=== PATIENT | male | born 1960 | race Caucasian/White ===

== ENCOUNTER → 2020-04-08 10:21 | Outpatient (BNVA) | payer MEDICAID, SELFPAY | PROVIDERS: Family Provider Family Medicine; PCP Family Medicine; Visit Provider Family Medicine | DX: E11.42 Type 2 diabetes mellitus with diabetic polyneuropathy (principal); E78.00 Pure hypercholesterolemia, unspecified; G89.4 Chronic pain syndrome | CPT/HCPCS: 80053; 80061; 83036; 85025 ==

== ENCOUNTER → 2020-12-03 10:03 | Outpatient (BNVA) | payer MEDICAID, SELFPAY | PROVIDERS: Family Provider Family Medicine; PCP Family Medicine; Visit Provider Family Medicine | DX: M17.11 Unilateral primary osteoarthritis, right knee (principal); E11.42 Type 2 diabetes mellitus with diabetic polyneuropathy; E78.00 Pure hypercholesterolemia, unspecified; I10 Essential (primary) hypertension; D48.0 Neoplasm of uncertain behavior of bone and articular cartilage | CPT/HCPCS: 73562; 80053; 80061; 83036; 85025 ==

== ENCOUNTER 2021-03-21 22:44 | Inpatient (IN) | payer MEDICAID, SELFPAY ==
[2021-03-21 22:46] VITALS: BP 208/101; PULSE 84; RESP 22; TEMP 36.6; O2SAT 98; BMI 48.8
[2021-03-21 23:24] VITALS: BP 180/117; PULSE 85; RESP 20; O2SAT 97
[2021-03-22] VITALS (17 sets, daily range): BP systolic 120–216; BP diastolic 69–116; PULSE 5–84; RESP 16–20; TEMP 36.1–37; O2SAT 94–100; BMI 40.9
[2021-03-22] MEDS: sodium chloride 0.9% 1,000 ML 999 ML IV (00:21)
[2021-03-22] MEDS: morphine 4 mg/mL SDV 1 mL IVP ×4 (00:22→18:29)
[2021-03-22] MEDS: enalaprilat 1.25 mg/mL Inj IVP (00:22)
[2021-03-22] MEDS: ondansetron 2 mg/ML SDV 2 mL 4 MG IVP ×2 (00:22→05:47)
--- NOTE | 2021-03-22 00:27 | P.CONIM_ITS ---
Providers/Reason For Consult Consulting Physician/Specialty*: Bryan Blankenship, DO- General Surgery Reason for Consult*: Small bowel obstruction Primary Care Provider: Dagoberto Harris MD History of Present Illness History of Present Illness Jer Awad is a 61 year old male with past medical history of obesity, hypertension, and diabetes mellitus. He presented this evening to an outside facility with complaints of right groin pain that was increasing in intensity over the last 5 days. Patient initially noticed this bulge a while back however he notes that it would go in and out depending on whether he was standing or lying down. At that point it was not associated with much pain and he denies any other symptoms related to it. Approximately 5 days ago he lifted something heavy the bulge was again noted and this time he was unable to reduce it or have it go away on its own. Pain was relatively steady until this evening when he noted increasing pain and now nausea. Patient notes a normal bowel movement today and did eat a large meal around 5:00 but now is having significant nausea and episodes of eructation. He denies vomiting, fever, or chills. The pain is noticed as sharp in nature with radiation down to the scrotum and into the abdomen. The pain is currently constant and only relieved with pain medications. Review of Systems General: Reports: 10 or more systems reviewed and unremarkable except in HPI a nd below Meds/Allergies Home Medications and Allergies Home Medications Medication Instructions Recorded Confirmed Last Taken Type pregabalin 100 mg capsule 100 mg PO BID #60 cap 11/13/19 12/03/20 Unknown Rx potassium chloride 20 mEq 20 meq PO DAILY #90 tab 10/01/20 12/03/20 Unknown Rx tablet,extended release atorvastatin 10 mg tablet 10 mg PO DAILY #90 tab 12/04/20 Unknown Rx hydrochlorothiazide 25 mg tablet 25 mg PO DAILY #90 tab 12/10/20 Unknown Rx cyclobenzaprine 10 mg tablet See Rx Instructions .ROUTE 03/05/21 Unknown Rx .COMPLEX #60 tab ibuprofen 800 mg tablet 800 mg PO TID PRN #90 tab 03/05/21 Unknown Rx lisinopril 20 mg tablet 20 mg PO BID #180 tab 03/05/21 Unknown Rx metformin 500 mg tablet 500 mg PO DAILY 90 Days #90 tab 03/05/21 Unknown Rx permethrin 1 % topical liquid 60 ml TOPICAL Q7D #118 ml 03/05/21 Unknown Rx hydrocodone 10 mg-acetaminophen 1 tab PO Q6H PRN 30 Days #98 tab 03/08/21 Unknown Rx 325 mg tablet Allergies Allergy/AdvReac Type Severity Reaction Status Date / Time No Known Allergies Allergy Verified 12/03/20 08:39 Current Medications Current Medications Generic Name Dose Route Start Last Admin Trade Name Freq PRN Reason Stop Dose Admin Sodium Chloride 1,000 mls @ 999 mls/hr 03/21/21 23:52 03/22/21 00:21 Sodium Chloride 0.9% IV 03/22/21 00:52 999 mls/hr .Q1H1M ONE Administration PFSH Acute PFSH: Medical History (Updated 03/22/21 @ 00:38 by Bryan Blankenship DO) Chronic pain Head lice Hypercholesteremia Hypertension Osteoarthritis of right knee Type 2 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 Social History Smoking and tobacco status: never smoked Vitals/I&O/Wt Last Vital Signs Temp 97.9 F 03/21/21 22:46 Pulse 85 03/21/21 23:24 Resp 20 H 03/21/21 23:24 BP 180/117 03/21/21 23:24 Pulse Ox 97 03/21/21 23:24 Weight last 48 hrs Weight 350 lb Physical Exam Const: COMMON NORMALS: patient oriented x3 and alert GENERAL APPEARANCE: in distress (Mild, obviously in in discomfort) NUTRITIONAL APPEARANCE: obese HENMT: COMMON NORMALS: normocephalic and atraumatic HEAD & SCALP: normocephalic and atraumatic Eye: COMMON NORMALS: conjunctivae normal CONJUNCTIVA: Yes conjunctivae normal Neck/C-Spine: COMMON NORMALS: full ROM Chest: COMMONS NORMALS: normal inspection of the chest Resp: COMMON NORMALS: normal respiratory effort Cardio: COMMON NORMALS: regular rate and regular rhythm RATE: regular rate RHYTHM: regular rhythm GI: INSPECTION: Yes abdominal distension AUSCULTATION: Yes Hyperactive bowel sounds present PALPATION: Yes Tenderness to palpation present (GI) and Yes Guarding due to palpation present (GI) RECTAL EXAM: Yes deferred : COMMON NORMALS: Yes no CVA tenderness BLADDER/KIDNEY EXAM: Yes no CVA tenderness MALE GROIN/PERINEUM EXAM: Yes edema and Yes tenderness (Right groin and scrotum) SCROTUM: Yes inguinal hernia Inguinal hernia laterality: right (Reducible, exquisitely tender), Yes edematous and Yes scrotal swelling Back/Pelvis: COMMON NORMALS: no CVA tenderness Extremity: COMMON NORMALS: normal to inspection Neuro: COMMON NORMALS: patient oriented x3 SENSORIUM/ORIENTATION: Yes alert Psych: COMMON NORMALS: mental status grossly normal, Normal thought process present and cooperative THOUGHT PROCESS: Normal thought process present Data Labs: Other Labs: WBC: 11; creatinine: Greater than 2 Imaging^: CT Abd/Pel: My impression: Small bowel obstruction with incarcerated loop within the right inguinal hernia with surrounding fluid A&P Assessment and plan (1) Inguinal hernia of right side with obstruction: 61-year-old male with incarcerated right inguinal hernia with associated small bowel obstruction. I am concerned that he is at high risk for strangulation given the relatively small neck of the hernia. Plan is for open right inguinal hernia repair with possible small bowel resection with possible exploratory laparotomy. Risks, benefits, and alternatives were discussed with the patient and he verbalized understanding. The plan is for emergent surgery this evening. Patient will be admitted to the hospitalist for control of his hypertension and diabetes. Status: Acute Coding Level of Care Code Acute Lab Support Technician for [facility] Diagnoses Inguinal hernia of right side with obstruction K40.30
[2021-03-22] MEDS: HYDROmorphone 1 mg/mL INJ 1 mL IVP (00:48)
--- NOTE | 2021-03-22 01:08 | ANES.PREANE2 ---
Pre-Anesthetic Assessment Pre-Anesthetic Assessment: Height/Weight: Height 1.8 m Weight 158.757 kg Temp Pulse Resp BP Pulse Ox 97.9 F 85 20 H 180/117 97 03/21/21 22:46 03/21/21 23:24 03/21/21 23:24 03/21/21 23:24 03/21/21 23:24 Preop Diagnosis: Inguinal Hernia Proposed Procedure: Ex-lap Familial anesthetic complications: None Was Beta Jac taken within 24 hours: N/A Was Clonidine taken within 24 hours: N/A Last intake: NPO at 8 hrs (last ate 5 pm yesterday) Social: Social History: No alcohol and No tobacco Exam: Pre-Anes Outpt Exam: alert, oriented x 3, clear to auscultation bilaterally and regular rate & rhythm Airway: Cervical ROM: WNL MP: 4 Dentition: Full Additional comments: large tongue, large neck circumference, full chris CV/HEM: CV/HEM: HTN Metabolic: Metabolic: DM and Morbid obesity (super) Anesthetic Plan: ASA status: 3E Anesthesia: General Risk of > 500 ml blood loss (7ml/kg in children): No PFSH Anesthesia PFSH: Medical History (Updated 03/22/21 @ 00:38 by Bryan Blankenship DO) Chronic pain Head lice Hypercholesteremia Hypertension Osteoarthritis of right knee Type 2 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 Social History Smoking and tobacco status: never smoked Data Anesthesia Cardiac Studies: No Data to Display
[2021-03-22] MEDS: midazolam 1 mg/mL INJ 2 mL 2 MG IVP (01:23)
[2021-03-22] MEDS: cetacaine Spray 5 gm Can 1 SPRAY TOPICAL (01:23)
[2021-03-22] MEDS: famotidine 20 mg/2 mL INJ IVP ×2 (01:23→12:08)
--- NOTE | 2021-03-22 01:45 | PC.NURSE ---
ATTEMPTS TO PLACE NASOGASTRIC TUBE UNSUCCESSFUL DUE TO PT COMPLIANCE. PT ESCORTED TO SURGERY VIA CART, SURGERY RN, AND DISTRICT SALES LEADER.
--- NOTE | 2021-03-22 02:24 | ED_ITS ---
HPI - Abdominal Pain General: Chief Complaint: Abdominal Pain Stated Complaint: GROIN SWELLING Time Seen by Provider: 03/21/21 23:01 History of Present Illness: HPI narrative: 61-year-old male presents as a transfer from an outside facility. He noticed a bulge in his right groin, a hernia that had become painful over the last couple of days, but today upon waking was very painful. He has felt sick most of the day, nauseated. No vomiting. No diarrhea. No fever. MD elicited complaint: abdominal pain Pertinent past history: other Onset (ago): hour(s) Pain Consistency: constant Location: Groin Severity: severe Quality: stabbing and aching Radiation: none Migration to: no migration Associated Symptoms: Reports belching, bloating and nausea; Denies diarrhea, fever(s), fecal incontinence and vomiting Review of Systems Const: Denies: fever(s) Card: Denies: chest pain or palpitations Resp: Denies: dyspnea, productive cough or non-productive cough GI: Reports: nausea, bloating and belching; Denies: vomiting, diarrhea or fecal incontinence Neuro: Denies: headache(s) PFSH ED PFSH: Medical History (Updated 03/22/21 @ 02:35 by Murray Buchanan DO) Chronic pain Head lice Hypercholesteremia Hypertension Osteoarthritis of right knee Type 2 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 Social History Smoking and tobacco status: never smoked Physical Exam Const: GENERAL APPEARANCE: cooperative and ill appearing (Mild) NUTRITIONAL APPEARANCE: obese ORIENTATION/CONSCIOUSNESS: Yes awake, Yes oriented to person, Yes oriented to place and Yes oriented to time HENMT: COMMON NORMALS: normocephalic HEAD & SCALP: normocephalic Eye: COMMON NORMALS: Equal, round and reactive pupils present and EOMs intact bilaterally PUPIL: Yes Equal, round and reactive pupils present Chest: COMMONS NORMALS: normal inspection of the chest Resp: COMMON NORMALS: normal respiratory effort, No use of accessory muscles and clear to auscultation bilaterally AUSCULTATION: clear to auscultation bilaterally Cardio: COMMON NORMALS: regular rate and regular rhythm RATE: regular rate RHYTHM: regular rhythm GI: PALPATION: Yes Firmness to palpation present (GI) (mildly) and Yes Tenderness to palpation present (GI) (diffuse. with bulge that is exceptionally tender r inguinal ring) Neuro: SENSORIUM/ORIENTATION: Yes oriented to person, Yes oriented to place and Yes oriented to time Course Consultations: Consultation #1: Krzysztof Consultation #2: Nae Vital Signs: Vital signs: Vital Signs Temperature 97.9 F 03/21/21 22:46 Pulse Rate 85 03/21/21 23:24 Respiratory Rate 20 H 03/21/21 23:24 Blood Pressure 180/117 03/21/21 23:24 Pulse Oximetry 97 03/21/21 23:24 MDM - Abdominal Pain MDM Narrative: Medical decision making narrative: 61-year-old male with right inguinal pain and swelling. CT reveals hernia with obstruction, and distended loops of small bowel proximal indicative of a small bowel obstruction. Spoke with surgery. He has evaluated the patient in the ER, and looked at the images. He is determined to take the patient to the OR. Spoke with the hospitalist who will admit the patient given comorbid conditions such as uncontrolled hypertension, etc. Discharge Plan Discharge Patient Disposition: Admitted As Inpatient Clinical Impression: Inguinal hernia of right side with obstruction Condition: Stable Coding Level of Care Code ED School Physical Therapist for [facility] F[facility] Exam Detailed
[2021-03-22] MEDS: acetaminophen 1,000 MG/100 ML PIGGYBACK 400 MG IV (02:40)
--- NOTE | 2021-03-22 04:21 | P.OP_ITS ---
Operative Report Date of procedure: March 22, 2021 Pre-op Diagnosis: Inguinal Hernia Post-op diagnosis: same Procedure Done: right inguinal hernia repair with mesh Implants: Bard extra-large plug and patch Specimens removed/disposition: Hernia sac to pathology; cord lipoma to trash Surgeon: Bryan Blankenship Anesthesia: General Estimated blood loss (mL): 15 IV fluids: See anesthesia record Urine output: See anesthesia record Complications: None Findings: Bowel reduced on induction of anesthesia; large indirect hernia sac; large cord lipoma Condition: stable Disposition: floor Brief History: 61-year-old male with findings concerning for small bowel obstruction related to a right inguinal hernia that was a reducible and tender. Procedure: Informed consent was obtained. patient was brought back from the ER to the operating room placed supine on the operating table. General endotracheal anesthesia was induced. Patient was clipped and prepped and draped in the usual sterile fashion. A timeout was performed prior to start of procedure. The anterior superior iliac spine was marked as was the pubic tubercle and a line drawn between the 2 marking the location of the inguinal ligament. An incision was made over this line from the location of the pubic tubercle about two [address] way out to the anterior superior iliac spine. The underlying tissues were dissected down to the level of the external oblique which was quite attenuated using cautery. The external oblique was opened sharply. There was a large bulge in the right groin however with our induction and light manipulation it did reduce somewhat. The hernia sac was identified in the hernia sac and the spermatic cord contents were encircled at the level of the pubic tubercle and a [place] drain was placed around them to allow for retraction. It was quite difficult to identify the structures there was a large cord lipoma and a very large sac. However, the sac was then identified and opened. A finger was able to enter the peritoneal cavity. Straw-colored ascites was encountered with no evidence of turbid fluid. The bowel was unable to be examined as it had already reduced. The cord structures were dissected off of the hernia sac as was the cord lipoma. The sac was examined again to ensure there was not a Ramos's hernia or something similar and there was nothing within the sac except for some intraperitoneal fat. The sac was suture-ligated with 0 Vicryl and transected and sent for specimen. The cord lipoma was also suture-ligated with 0 Vicryl and transected and passed off for disposal. An extra-large Bard plug and patch system was employed. The plug was secured in place with 2-0 Prolene at the internal inguinal ring. The patch was secured medially at the pubic tubercle using two 2-0 Prolene and then a 2-0 Prolene running was used to secure the mesh to the conjoined tendon and to Poupart's ligament. Mesh was placed without tension and had good coverage of the inguinal floor and the internal inguinal ring. The spermatic cord was not strangulated by the mesh. What was left of the external oblique was closed using a 3-0 Vicryl in a running fashion. The subcutaneous tissues were also closed using a 3-0 Vicryl in running fashion to approximate Gauri's and the deep dermis. 1% lidocaine was infiltrated in both the deep and superficial tissues for local anesthesia. The skin was approximated using a running 4-0 Monocryl and Dermabond. Fluffs and a athletic support were employed. The decision was made to not explore the abdomen and investigate the reduced bowel given the fact that the patient did not have evidence of bowel ischemia on CT scan or skin changes or laboratory or hemodynamic changes that would be consistent with ischemic bowel. Patient will be observed closely as an inpatient for the next 24 hours. All counts were correct at the end the procedure. The patient was awakened from general anesthesia and taken to the floor for recovery. He tolerated the procedure well without complication.
--- NOTE | 2021-03-22 04:30 | ANE.PACU2 ---
Inpatient post-anesthesia follow up: Airway intact: Yes Vital signs: Temperature 98.6 F Pulse Rate [Monito r] 84 Pulse Rate 68 Respiratory Rate 18 Blood Pressure [Le ft Arm] 208/101 Blood Pressure 139/77 Pulse Oximetry 96 Oxygen Delivery Me thod Room Air Oxygen Flow Rate 6 Fraction of Inspir ed Oxygen Hydration adequate: Yes Nausea and vomiting: No Pain level: 3 Mental status: Baseline
[2021-03-22] MEDS: cetylpyridinium Lozenge 1 EACH MUCOUS MEM (05:48)
--- NOTE | 2021-03-22 06:39 | PC.NURSE ---
Dr Soni to floor to see pt. Chloraseptic spray ordered /read back/entered.
--- NOTE | 2021-03-22 06:57 | PM.HP ---
Providers/Chief Complaint Admitting Physician: Bryan Blankenship DO Primary Care Provider: Dagoberto Harris MD Chief Complaint: GROIN SWELLING History of Present Illness 60-year-old male with a past medical history significant for hypertension, diabetes mellitus who is presenting to ER with right groin pain. This has been ongoing for the past week. Noticed a bulge in right groin area which was not reducible.Due to increasing pain patient presented to hospital for evaluation. He was suspected to have incarcerated right inguinal hernia with associated small-bowel obstruction. Was initially seen by general surgery and taken for an exploratory laparotomy. Was seen postoperative period during which time he was complaining of throat pain due to NG tube being in place. Additionally patient was noted to be hypertensive emergency room. He was given IV enalaprit. Also given IV pain medication Review of Systems General: Reports: 10 or more systems reviewed and unremarkable except in HPI and below Medications/Allergies Home Medications Medication Instructions Recorded Confirmed Last Taken Type pregabalin 100 mg capsule 100 mg PO BID #60 cap 11/13/19 03/22/21 Unknown Rx potassium chloride 20 mEq 20 meq PO DAILY #90 tab 10/01/20 03/22/21 03/21/21 09:00 Rx tablet,extended release atorvastatin 10 mg tablet 10 mg PO DAILY #90 tab 12/04/20 03/22/21 03/21/21 09:00 Rx hydrochlorothiazide 25 mg tablet 25 mg PO DAILY #90 tab 12/10/20 03/22/21 03/21/21 09:00 Rx cyclobenzaprine 10 mg tablet See Rx Instructions .ROUTE 03/05/21 03/22/21 03/21/21 09:00 Rx .COMPLEX #60 tab ibuprofen 800 mg tablet 800 mg PO TID PRN #90 tab 03/05/21 03/22/21 03/21/21 12:00 Rx lisinopril 20 mg tablet 20 mg PO BID #180 tab 03/05/21 03/22/21 03/21/21 13:00 Rx metformin 500 mg tablet 500 mg PO DAILY 90 Days #90 tab 03/05/21 03/22/21 03/21/21 09:00 Rx hydrocodone 10 mg-acetaminophen 1 tab PO Q6H PRN 30 Days #98 tab 03/08/21 03/22/21 03/21/21 09:00 Rx 325 mg tablet Allergies Allergy/AdvReac Type Severity Reaction Status Date / Time No Known Allergies Allergy Verified 12/03/20 08:39 PFSH Acute PFSH: Medical History (Updated 03/22/21 @ 02:35 by Murray Buchanan DO) Chronic pain Head lice Hypercholesteremia Hypertension Osteoarthritis of right knee Type 2 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 Social History Smoking and tobacco status: never smoked Vitals/I&O/Wt Last Vital Signs Temp 98.5 F 03/22/21 04:50 Pulse 67 03/22/21 04:50 Resp 16 03/22/21 05:48 BP 165/90 03/22/21 04:50 Pulse Ox 97 03/22/21 05:48 03/21/21 03/22/21 03/22/21 22:59 06:59 14:59 Intake Total 1850 / 1850 Output Total 225 / 225 Balance 1625 / 1625 Weight last 48 hrs Weight 133.129 kg Weight 158.757 kg Physical Exam Narrative: EXAM NARRATIVE: General : Alert, Post op HEENT : NG tube in place CVS; RRR CHEst : CTABL Abd Post op Ext : No edema Urinary Catheter Management^: F: Cath Placed During This Visit: yes, but has since been removed by the nurse Urinary Catheter Date of Insertion: 03/22/21 Urinary Catheter Time of Insertion: 02:00 Date Urinary Catheter Removed: 03/22/21 Time Urinary Catheter Discontinued: 04:19 A&P Assessment and plan (1) Inguinal hernia of right side with obstruction: Status: Acute (2) Hypertension: Status: Acute (3) Type 2 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: Status: Acute (4) Hypercholesteremia: Status: Acute Additional A&P Information Incarcerated right inguinal hernia with SBO S/p Exp lap -right inguinal hernia repair with mesh NG tube in place Pain control NPO IVF Management per surgery Accelerated Hypertension Due to pain Currently NPO Hydralazine 10 mg IV q8hr PRN Diabetes Mellitus Sliding scale insulin Q6hr Blood sugar checks Gi ppx Pepcid 20 mg Iv BID DVT ppx SCDs Attestations Medical Necessity Statement*: Anticipate over2 midnights stay in hospital for evaluation treatment Time Spent in Patient Care: Greater than 35 minutes (>than 50% of time spent in counselling and/or direct pt care on unit). Coding Level of Care Code Acute Assistant Fitness Manager for [facility] Diagnoses Inguinal hernia of right side with obstruction K40.30 Hypertension I10 Type 2 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 E11.42 Hypercholesteremia E78.00
--- NOTE | 2021-03-22 07:34 | PC.NURSE ---
AM NOTE PT YELLING OUT - RANDOM WORDS - THIS NURSE TO ROOM - PT SETTLES - ABLE TO STATE NAME, DATE OF , LOCATION AND SITUATION - EDUCATED PT TO NOT YELL - HAND HELD CALL LIGHT AT SIDE
[2021-03-22] MEDS: phenol oral Spray 177 mL 3 SPRAY MUCOUS MEM (08:02)
--- NOTE | 2021-03-22 08:48 | PC.NURSE ---
AM NOTE PT RESTING IN BED - CAN BE HEARD FROM HALLWAY WITH RAPID SPEECH - PT APPEARS TO BE VOICING RAPID THOUGHTS - VERY RANDOM WITH SPEECH - THIS NURSE READING IN H&P THAT PT HAS A HISTORY OF HEAD LICE - QUESTIONED PT ON THIS - PT STATES I CURRENTLY HAVE HEAD LICE - ISOLATION PRECAUTIONS TAKEN PER THIS NURSE TO VERIFY PTS HEAD - PT QUESTIONS TO WHAT I AM ASSESSING FOR - AGAIN EXPLAINED HEAD LICE - PT THEN STATES RADHA NEVER HAD HEAD LICE - I DIDN'T TELL YOU I HAD EVER HAD HEAD LICE - I HAVE DANDRUFF - NO I DON'T HAVE DANDRUFF - I'VE BEEN LIVING IN THE [place]USHES AND I HAVE CHIGGERS AND SEED TICKS - YOU CAN NEVER GET RID OF SEED TICKS - PT CONTINUES TO RAMBLE - QUESTIONED PER THIS NURSE THAT PT HAD PREVIOUSLY STATED HE LIVED IN AN APARTMENT - PT THEN STATES YES I LIVE IN AN APARTMENT IN [place] - HEAD AND MAE CHECK FOR CURRENT LICE PER THIS NURSE AND CADENCE GLEASON CHARGE - NO CURRENT LICE FOUND
--- NOTE | 2021-03-22 11:20 | PM.PN ---
Subjective Medications: Medication Review Details: Patient with no acute events overnight. He notes feeling 1000% better this morning with no issues. He is complaining about his NG tube and he notes that he is extremely hungry. He was able to ambulate without issue. He denies flatus or bowel movement. Vitals/I&O/Wt Last Vital Signs Temp 98.6 F 03/22/21 08:00 Pulse 68 03/22/21 08:00 Resp 18 03/22/21 10:03 BP 139/77 03/22/21 08:00 Pulse Ox 96 03/22/21 08:00 03/21/21 03/22/21 03/22/21 22:59 06:59 14:59 Intake Total 1850 / 1850 Output Total 225 / 225 Balance 1625 / 1625 Weight last 48 hrs Weight 293 lb 8 oz Weight 350 lb Physical Exam Const: COMMON NORMALS: no acute distress and patient oriented x3 Resp: COMMON NORMALS: normal respiratory effort Cardio: COMMON NORMALS: regular rate and regular rhythm RATE: regular rate RHYTHM: regular rhythm GI: COMMON NORMALS: Normal to inspection, nondistended, normoactive bowel sounds present, Soft to palpation and non-tender PALPATION: Yes Soft to palpation : OTHER: Right groin with dressing in place. No ecchymosis. No evidence of hernia recurrence Neuro: COMMON NORMALS: patient oriented x3 Urinary Catheter Management^: F: Cath Placed During This Visit: yes, but has since been removed by the nurse Urinary Catheter Date of Insertion: 03/22/21 Urinary Catheter Time of Insertion: 02:00 Date Urinary Catheter Removed: 03/22/21 Time Urinary Catheter Discontinued: 04:19 A&P Assessment and plan (1) Inguinal hernia of right side with obstruction: 41-year-old male postop day 0 from right inguinal hernia repair with mesh. Patient is relatively asymptomatic this morning. Will DC NG tube and advance to full liquid diet. Would like to have patient passing flatus prior to discharge.. Patient verbalized understanding. Nurse was at bedside for rounds. Status: Acute Attestations Medical Necessity Statement*: Jer Awad's hospital stay will be less than 2 midnights for small bowel obstruction related to a right inguinal hernia. We're waiting for resolution of his obstruction after his hernia repair. Coding Level of Care Code Acute Electric Lineman for [facility] Diagnoses Inguinal hernia of right side with obstruction K40.30
--- NOTE | 2021-03-22 11:26 | PC.NURSE ---
DR KEYANA RIDLEY AT SIDE - ORDER'S REC'D TO DC NG AND HEPLOCK IV - COMPLETED PER THIS NURSE - INSTRUCTED TO PROCEED SLOWLY WITH FULL LIQUID DIET
[2021-03-22 11:35] LABS: Glucose Point of Care 140 mg/dL (70-110)
--- NOTE | 2021-03-22 12:12 | P.PN_ITS ---
Subjective Medications: Medication Review Details: No acute events overnight. S/p: right inguinal hernia repair with mesh. NG tube has been withdrawn. On full liquid diet. Denies any abdominal pain nausea vomiting, has not passed any flatus no bowel movements. Vitals/I&O/Wt Last Vital Signs Temp 98.6 F 03/22/21 08:00 Pulse 68 03/22/21 08:00 Resp 18 03/22/21 10:03 BP 139/77 03/22/21 08:00 Pulse Ox 96 03/22/21 08:00 03/21/21 03/22/21 03/22/21 22:59 06:59 14:59 Intake Total 1850 / 1850 Output Total 225 / 225 Balance 1625 / 1625 Weight last 48 hrs Weight 133.129 kg Weight 158.757 kg Physical Exam Const: COMMON NORMALS: patient oriented x3 HENMT: COMMON NORMALS: normocephalic and atraumatic HEAD & SCALP: normocephalic and atraumatic Resp: COMMON NORMALS: clear to auscultation bilaterally AUSCULTATION: clear to auscultation bilaterally Cardio: COMMON NORMALS: regular rate, regular rhythm, S1 normal heart sound present, S2 normal heart sound present, No gallops present (Cardio), No murmurs present (Cardio), No rub (Cardio) and Peripheral pulses 2+ throughout RATE: regular rate RHYTHM: regular rhythm HEART SOUNDS: S1 normal heart sound present and S2 normal heart sound present PERIPHERAL PULSES: Peripheral pulses 2+ throughout GI: COMMON NORMALS: Normal to inspection, nondistended, normoactive bowel sounds present, Soft to palpation, non-tender, No hepatosplenomegaly present and no masses AUSCULTATION: Yes normoactive bowel sounds PALPATION: Yes Soft to palpation and Yes No hepatosplenomegaly present RECTAL EXAM: Yes deferred Extremity: COMMON NORMALS: no clubbing, cyanosis or edema and no pedal edema Neuro: COMMON NORMALS: patient oriented x3 Urinary Catheter Management^: F: Cath Placed During This Visit: yes, but has since been removed by the nurse Urinary Catheter Date of Insertion: 03/22/21 Urinary Catheter Time of Insertion: 02:00 Date Urinary Catheter Removed: 03/22/21 Time Urinary Catheter Discontinued: 04:19 A&P Assessment and plan (1) Inguinal hernia of right side with obstruction: S/p: right inguinal hernia repair with mesh. Surgery on board. 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
--- NOTE | 2021-03-22 16:11 | PC.NURSE ---
END OF SHIFT SUMMARY PT HAS CONTINUED TO YELL OUT THROUGHOUT SHIFT - WILL TALK TO HIMSELF WHEN QUESTIONED PER STAFF - PT SEEMS TO HAVE RAPID THOUGHTS - X1 PAIN MEDICATION GIVEN PER THIS NURSE - NG REMAINS OUT WITH PT PAMELA FULL LIQUID DIET WITHOUT DIFFICULTY - CONSTANT EDUCATION TO GO SLOWLY WITH LIQUIDS - PIID REMAINS IN LEFT AC WITHOUT DIFFICULTY - JOCK STRAP AND 4X4 FLUFF IN PLACE WITH DERMABOND TO RIGHT INCISION C/D/I - PT HAS BEEN STANDING BY BEDSIDE X3 TIMES TODAY - PAMELA WELL
[2021-03-22 17:11] LABS: Glucose Point of Care 131 mg/dL (70-110)
--- NOTE | 2021-03-22 21:06 | PC.NURSE ---
During rounds pt resting in bed doing math out loud asking this RN is 2 divided by 2 one and eight with seven is 15 then repeatedly stating Q&A questions and answers . Pt refused bedtime blood sugar check. Education given on the importance of monitoring blood sugar. Continue to decline. Dr. Soni made aware.
--- NOTE | 2021-03-22 23:10 | PC.NURSE ---
Pt found in hallway without gown and only jockstrap on yelling hello repeatedly. This RN got pt back to his room and showed him the call light and educated pt to utilize call light for needs and concerns. Pt verbalized understanding. Declined any needs or c/o pain at this time.
--- NOTE | 2021-03-22 23:33 | PC.NURSE ---
This RN entered pt room to observe pt sitting in chair with betadine swabs and wiping his face, hands, and body down with betadine. Pt stating this stuff is so good. I'm not dirty if you see that. I've been wiping myself down . This RN asked where he received the swabs from. Pt unable to answer and states you're gonna get a 0500 wake up call . This proceeds to clean his ear with the swabs. This RN clarified if he wanted to be woke up at 0500. Pt stated what time are you here til? and I'll need a ride home . Pt thoughts are rapid from topic to topic.
[2021-03-23] MEDS: famotidine 20 mg/2 mL INJ IVP (00:04)
[2021-03-23 04:00] VITALS: BP 122/70; PULSE 72; RESP 18; TEMP 36.8; O2SAT 98
[2021-03-23 05:40] LABS: Basophils % 0.5 %; Eosinophils # 0.3 10^3/uL (0.0-0.8); Eosinophils % 4.1 %; Hemoglobin 11.5 g/dL (11.7-16.6); Lymphocytes # 1.8 10^3/uL (0.8-4.8); Lymphocytes % 23.8 %; Mean Corpuscular HGB Conc 31.1 g/dL (30.0-36.0); Mean Corpuscular Hemoglobin 28.3 pg (28.0-34.0); Mean Corpuscular Volume 91.1 fl (80-94); Monocytes # 0.8 10^3/uL (0.2-0.9); Monocytes % 11.4 %; Neutrophils # 4.44 10^3/uL (1.8-7.7); Neutrophils % 59.9 %; Nucleated Red Blood Cells % 0 %; Platelet Count 165 10^3/cmm (130-400); Red Blood Count 4.06 10^6/uL (4.1-5.3); Red Cell Distribution Width 13.6 % (12.1-15.1); White Blood Count 7.4 10^3/uL (4.0-10.0)
[2021-03-23 06:07] LABS: Lactic Sepsis W/Reflex 0.3 mmol/L (0.5-2.2)
[2021-03-23 06:09] LABS: Alanine Aminotransferase 6 U/L (0-41); Anion Gap 14.1 (5-19); Aspartate Amino Transferase 12 U/L (0-40); Blood Urea Nitrogen 37 mg/dL (6-20); Calcium 8.4 mg/dL (8.5-10.5); Carbon Dioxide 19 mmol/L (22-29); Chloride 109 mmol/L (98-107); Glomerular Filtration Rate 51.9 mL/min (90-130); Glucose 83 mg/dL (65-115); Osmolality Calculated 294 mOsm/kg (285-295); Potassium 4.1 mmol/L (3.5-5.1); Sodium 138 mmol/L (136-145); Total Bilirubin 0.3 mg/dL (0.15-1.2)
[2021-03-23 06:10] LABS: Alkaline Phosphatase 75 IU/L (40-130)
--- NOTE | 2021-03-23 06:28 | PM.PN ---
Subjective Subjective: Interval history: Patient denies any issues overnight. He is able to tolerate his full liquid diet. He has had bowel movements with passing flatus. He states he would like to go home. He understands no heavy lifting for 2 to 4 weeks and to follow-up in [address] Rachel or Dr. Dey. Vitals/I&O/Wt Last Vital Signs Temp 98.3 F 03/23/21 04:00 Pulse 72 03/23/21 04:00 Resp 18 03/23/21 04:00 BP 122/70 03/23/21 04:00 Pulse Ox 98 03/23/21 04:00 03/22/21 03/22/21 03/23/21 14:59 22:59 06:59 Intake Total 360 / 360 240 / 600 480 / 1080 Output Total 900 / 900 Balance 360 / 360 -660 / -300 480 / 180 Weight last 48 hrs Weight 293 lb 8 oz Weight 350 lb Physical Exam Narrative: EXAM NARRATIVE: General: No acute distress, awake alert and oriented x3 Abdomen: Soft, nontender, nondistended, normal active bowel sounds Groin: Incision clean, dry, and intact; no evidence of infection Urinary Catheter Management^: F: Cath Placed During This Visit: yes, but has since been removed by the nurse Urinary Catheter Date of Insertion: 03/22/21 Urinary Catheter Time of Insertion: 02:00 Date Urinary Catheter Removed: 03/22/21 Time Urinary Catheter Discontinued: 04:19 Data : 03/23/21 05:26 03/23/21 05:26 A&P Assessment and plan (1) Inguinal hernia of right side with obstruction: 61-year-old male postop day one from right inguinal hernia repair with mesh. Patient meets all criteria for discharge to home. Advised patient that if he has any issues similar to before that he should represent to the ER immediately. Patient understands that he should not lift any heavy for 2 to 4 weeks. He may shower but no baths. He should follow up in [address] Dorsey or Dr. Rachel. Status: Acute Attestations Medical Necessity Statement*: Jer Awad's hospital stay will be less than 2 midnights for right inguinal hernia with obstruction. Patient should be able discharged home today. Coding Level of Care Code Acute Postpartum Nurse for [facility] Diagnoses Inguinal hernia of right side with obstruction K40.30
[2021-03-23 06:45] LABS: Glucose Point of Care 110 mg/dL (70-110)
[2021-03-23 07:47] VITALS: BP 100/48; PULSE 92; RESP 17; TEMP 36.9; O2SAT 97
[2021-03-23] MEDS: atorvastatin 40 mg Tablet 10 MG PO (09:02)
[2021-03-23] MEDS: hydroCHLOROthiazide 25 mg Tablet PO (09:02)
--- NOTE | 2021-03-23 11:06 | P.DS_ITS ---
Discharge Providers Date of Admission: 03/22/21 03:08 Date of Discharge: March 23, 2021 Attending Provider at Admission: Bryan Blankenship DO Attending Provider at Discharge: José Antonio Charlton MD Primary Care Provider: Dagoberto Harris MD Diagnoses at Discharge Discharge Diagnosis (1) Inguinal hernia of right side with obstruction: Status: Acute Reason for Visit Reason for Visit: GROIN SWELLING Hospital Course Hospital Course This is a 61-year-old with a past medical history of [id number] type 2 diabetes mellitus, diabetic peripheral neuropathy, hypertension, hyperlipidemia, chronic pain,ckd, who presents to [facility] right groin pain, patient was admitted to [facility] for inguinal hernia of right side with obstruction, status post right inguinal hernia repair with mesh by , tolerated surgical procedure well, ambulating without significant symptomatology, discharged home with a follow-up with general surgery in 2 weeks, patient was advised to not lift heavy for 2 to 4 weeks, Physical Exam Const: COMMON NORMALS: no acute distress and patient oriented x3 Neck/C-Spine: COMMON NORMALS: no JVD Resp: COMMON NORMALS: normal respiratory effort, No retractions, No use of accessory muscles and clear to auscultation bilaterally AUSCULTATION: clear to auscultation bilaterally Cardio: COMMON NORMALS: no JVD, regular rate, regular rhythm, S1 normal heart sound present and S2 normal heart sound present RATE: regular rate RHYTHM: regular rhythm HEART SOUNDS: S1 normal heart sound present and S2 normal heart sound present GI: COMMON NORMALS: Normal to inspection, nondistended, normoactive bowel sounds present, Soft to palpation and non-tender PALPATION: Yes Soft to palpation Extremity: COMMON NORMALS: no pedal edema Neuro: COMMON NORMALS: patient oriented x3 Psych: COMMON NORMALS: mental status grossly normal Skin: NARRATIVE SKIN EXAM: Surgical dressing, over right inguinal surgical dressing looks clean and dry Urinary Catheter Management^: F: Cath Placed During This Visit: yes, but has since been removed by the nurse Urinary Catheter Date of Insertion: 03/22/21 Urinary Catheter Time of Insertion: 02:00 Date Urinary Catheter Removed: 03/22/21 Time Urinary Catheter Discontinued: 04:19 Discharge Data Data Completed and Pending: Pending at discharge Category Date Time Status Pathology: Surgic al [PTH] Routine Pth 03/22/21 04:17 Received Labs from last 24 hours 03/23/21 03/23/21 03/23/21 06:18 05:26 05:26 WBC RBC Hgb Hct MCV MCH MCHC RDW Plt Count MPV Neut % (Auto) Lymph % (Auto) [place] % (Auto) Eos % (Auto) Baso % (Auto) Neut # (Auto) Lymph # (Auto) [place] # (Auto) Eos # (Auto) Baso # (Auto) Nucleated RBC % (a uto) Nucleated RBCs # Sodium 138 Potassium 4.1 Chloride 109 H Carbon Dioxide 19 L Anion Gap 14.1 BUN 37 H Creatinine 1.4 H GFR Calculation 51.9 L Glucose 83 POC Glucose 110 Calculated Osmolal ity 294 Lactic Acid 0.3 L Calcium 8.4 L Total Bilirubin 0.3 AST 12 ALT 6 Alkaline Phosphata se 75 Total Protein 6.0 L Albumin 3.0 L Globulin 3.0 03/23/21 03/22/21 03/22/21 05:26 17:07 11:32 WBC 7.4 RBC 4.06 L Hgb 11.5 L Hct 37.0 L MCV 91.1 MCH 28.3 MCHC 31.1 RDW 13.6 Plt Count 165 MPV 10.0 Neut % (Auto) 59.9 Lymph % (Auto) 23.8 [place] % (Auto) 11.4 Eos % (Auto) 4.1 Baso % (Auto) 0.5 Neut # (Auto) 4.44 Lymph # (Auto) 1.8 [place] # (Auto) 0.8 Eos # (Auto) 0.3 Baso # (Auto) 0.0 Nucleated RBC % (a uto) 0 Nucleated RBCs # 0.0 Sodium Potassium Chloride Carbon Dioxide Anion Gap BUN Creatinine GFR Calculation Glucose POC Glucose 131 H 140 H Calculated Osmolal ity Lactic Acid Calcium Total Bilirubin AST ALT Alkaline Phosphata se Total Protein Albumin Globulin Vitals: Last Vital Signs Temp 98.5 F 03/23/21 07:47 Pulse 92 03/23/21 07:47 Resp 17 03/23/21 07:47 BP 100/48 03/23/21 07:47 Pulse Ox 97 03/23/21 07:47 Discharge Plan Discharge Patient Disposition: Home Condition: Stable Prescriptions: Continued pregabalin [Lyrica] 100 mg capsule 100 mg PO BID Qty: 60 RF: 0 potassium chloride 20 mEq tablet extended release 20 meq PO DAILY Qty: 90 RF: 1 atorvastatin 10 mg tablet 10 mg PO DAILY Qty: 90 RF: 1 hydrochlorothiazide 25 mg tablet 25 mg PO DAILY Qty: 90 RF: 1 cyclobenzaprine 10 mg tablet See Rx Instructions .ROUTE .COMPLEX Qty: 60 RF: 3 lisinopril 20 mg tablet 20 mg PO BID Qty: 180 RF: 1 metformin 500 mg tablet 500 mg PO DAILY 90 Days Qty: 90 RF: 3 hydrocodone-acetaminophen 10-325 mg tablet 1 tab PO Q6H PRN (Reason: pain) 30 Days Qty: 98 RF: 0 Discontinued ibuprofen [IBU] 800 mg tablet 800 mg PO TID PRN (Reason: pain) Qty: 90 RF: 2 Discharge Orders: Discharge Order (Routine); Ordered 03/23/21 Ordered By: José Antonio Charlton Referrals: Dagoberot Harris MD [Primary Care Provider] - 04/01/21 9:00 am Henry Dey MD [Physician] - 2 weeks ([facility] will call you with an appointment for post op hernia. ) Discharge Diet: Diabetic Discharge Activity: Limit activity as instructed Patient Instructions: Inguinal Hernia (GEN), Opioid Safety Activity Restrictions/Additional Instructions: -No heavy lifting for 2 to 4 weeks -Follow-up with general surgery in the next 2 weeks -can shower, no baths -If recurrent pain go to emergency room- Discharge Attestations Time Spent in Discharge Care*: less than 30 min Quality Metrics Clinical Quality Measures During this hospital stay, did patient experience: None Coding Level of Care Code Acute Chg [facility] note Diagnoses Inguinal hernia of right side with obstruction K40.30
--- NOTE | 2021-03-23 11:16 | PC.NURSE ---
discharge instructions given to patient and patient verbalized understanding of instructions. patient walked to ER door for ride home.
[2021-03-23 11:19] VITALS: BP 100/48; PULSE 92; RESP 17; TEMP 36.9; O2SAT 97
--- NOTE | 2021-03-25 08:51 | PC.SOCIAL ---
discharge follow up call, multiple calls made yesterday and unable to reach patient. [phone] message investment underwriter gets is unable to complete call at this time. the number listed for next of kin is no longer a working number.
== END 2021-03-23 11:20 | disposition home or self-care (01) | DRG 352 ==
LOC: ER 23:32 → OPS 03-22 01:06 → MEDSURG 03-22 03:08
PROVIDERS: Hospitalist; Internal Medicine; Admitting Provider Anesthesiology Critical Care Medicine; Emergency Provider Emergency Medicine; PCP Family Medicine; Visit Provider Family Medicine
PROC: 0YU50JZ Supplement Right Inguinal Region with Synthetic Substitute, Open Approach (ICD-10-PCS; principal; 2021-03-22 01:30)
DX: K40.30 Unilateral inguinal hernia, with obstruction, without gangrene, not specified as recurrent (principal); E11.42 Type 2 diabetes mellitus with diabetic polyneuropathy; E11.22 Type 2 diabetes mellitus with diabetic chronic kidney disease; I12.9 Hypertensive chronic kidney disease with stage 1 through stage 4 chronic kidney disease, or unspecified chronic kidney disease; N18.9 Chronic kidney disease, unspecified; E78.5 Hyperlipidemia, unspecified; E78.00 Pure hypercholesterolemia, unspecified
CPT/HCPCS: 36415; 36416; 51702; 80053; 82962; 83605; 85025; 88302; 96374; 96375; 96376; 99285; J0330; J0690; J1100; J1170; J2250; J2270; J2405; J2704; J3010; J3490; J7030

== ENCOUNTER → 2021-10-08 11:45 | Outpatient (BNVA) | payer MEDICAID, SELFPAY | PROVIDERS: PCP Family Medicine; Visit Provider Family Medicine | DX: I10 Essential (primary) hypertension (principal); E11.42 Type 2 diabetes mellitus with diabetic polyneuropathy; E78.00 Pure hypercholesterolemia, unspecified; G89.4 Chronic pain syndrome; I87.2 Venous insufficiency (chronic) (peripheral) | CPT/HCPCS: 80053; 80061; 83036; 85025 ==